=== PATIENT | male | born 1935 | race Caucasian/White ===

== ENCOUNTER 2019-08-08 12:27 | Emergency (ER) | payer OTHER ==
[~2019-08-08] VITALS: Ht 180.3 cm; Wt 79.5 kg
[2019-08-08 12:39] VITALS: Ht 180.3 cm; Wt 79.5 kg
[2019-08-08] MEDS ORDERED: ZOCOR20 MG PO (12:40)
[2019-08-08] MEDS ORDERED: LISINOPRIL20 MG PO (12:41)
[2019-08-08 14:08] LABS: CALC OSMOLALITY 316 mosm/kg (275-300); CALCIUM 9.7 mg/dL (8.5-10.1); CARBON DIOXIDE 18.1 mmol/L (21.0-32.0); CHLORIDE - SERUM 101 mmol/L (98-107); CREATININE - SERUM 6.2 mg/dL (0.6-1.3); GLUCOSE 116 mg/dL (74-106); POTASSIUM - SERUM 4.7 mmol/L (3.5-5.1); SODIUM 136 mmol/L (136-145); UREA NITROGEN 135 mg/dL (7-18); eGFR NON AFRICAN AMERICAN 9 mL/min (90-120)
[2019-08-08 14:17] LABS: ALBUMIN 3.9 g/dL (3.4-5.0); ALKALINE PHOSPHATASE 78 U/L (30-120); ALT (SGPT) 31 U/L (10-68); AMYLASE - SERUM 81 U/L (25-115); BILIRUBIN - TOTAL 0.31 mg/dL (0.2-1.3); LIPASE 365 U/L (73-393); PROTEIN - SERUM 8.7 g/dL (6.4-8.2); TROPONIN-I < 0.017 ng/mL (0.000-0.060)
[2019-08-08 14:27] LABS: BASOPHILS 0.2 % (0-2); EOSINOPHILS 0.5 % (0-7); HEMATOCRIT 33.8 % (42.0-54.0); HEMOGLOBIN 10.7 g/dL (13.5-17.5); IMMATURE GRANULOCYTES 0.5 % (0-5); LYMPHOCYTES 16.3 % (15-50); MCH 30.1 pg (26.0-34.0); MCHC 31.7 g/dL (31.0-37.0); MCV 94.9 fL (80.0-100.0); MEAN PLATELET VOLUME 10.3 fL (7.4-10.4); NEUTROPHILS 74.5 % (40-80); PLATELET COUNT 382 10x3/uL (130-400); RBC 3.56 10x6/uL (4.20-6.10); WBC 10.4 10x3/uL (4.8-10.8)
[2019-08-08 16:15] LABS: BILIRUBIN NEGATIVE (NEGATIVE); GLUCOSE NEGATIVE (NEGATIVE); KETONE NEGATIVE (NEGATIVE); NITRITE NEGATIVE (NEGATIVE); SPECIFIC GRAVITY 1.015 (1.005-1.020); UROBILINOGEN NORMAL (NORMAL)
[2019-08-08 16:16] LABS: RED CELLS - URINE 0-5 /hpf (0-5)
[2019-08-08 16:17] LABS: BACTERIA FEW /hpf (NEGATIVE); EPITHELIAL CELLS NSEEN /hpf (0-5)
[2019-08-08 20:24] VITALS: BP 162/80
== END 2019-08-08 20:24 | disposition other institution (70) ==
LOC: D.ER 12:27
PROVIDERS: Emergency Medicine
DX: N17.9 Acute kidney failure, unspecified (principal); E86.0 Dehydration; K29.70 Gastritis, unspecified, without bleeding; N13.9 Obstructive and reflux uropathy, unspecified; K21.9 Gastro-esophageal reflux disease without esophagitis; R11.0 Nausea; I11.0 Hypertensive heart disease with heart failure; I50.9 Heart failure, unspecified; E78.5 Hyperlipidemia, unspecified; Z85.72 Personal history of non-Hodgkin lymphomas